=== PATIENT | female | born 1985 | race Hispanic/Latino ===

== ENCOUNTER 2017-02-25 07:58 | Day surgery (SDC) | payer BC ==
[2017-02-25] MEDS ORDERED: Lactated Ringer's 500 ML IV ONE (08:51)
[2017-02-25] MEDS ORDERED: Midazolam 2 MG/2 ML VIAL ONE (09:35)
[2017-02-25] MEDS ORDERED: Propofol 10 mg/ml Inj (20 ML) ONE ×2 (09:35→10:06)
[2017-02-25 10:26] VITALS: RESP 15
[2017-02-25 10:35] VITALS: BP 110/71; PULSE 69; TEMP 98; O2SAT 100
== END 2017-02-25 10:49 | disposition home or self-care (01) ==
LOC: H.ENDO 07:58
PROVIDERS: ATTEND Internal Medicine Gastroenterology
DX: K62.5 Hemorrhage of anus and rectum (principal); K64.1 Second degree hemorrhoids
CPT/HCPCS: 43239; 45378; 88305; J2250; J2704; J7120